=== PATIENT | female | born 1975 | race Caucasian/White ===

== ENCOUNTER 2017-04-01 17:57 | Emergency (ER) | payer SELFPAY ==
[~2017-04-01] VITALS: Ht 154.9 cm; Wt 69.0 kg
[~2017-04-01 17:57] MED LIST: LEXA20TA PO; MONT10TA2 PO; VENTAER INH
[2017-04-01 18:08] VITALS: BP 127/67; PULSE 82; RESP 16; TEMP 98.6; O2SAT 96
[2017-04-01] MEDS ORDERED: METF500T PO (18:23)
[2017-04-01 18:24] LABS: BLOOD, URINE TRACE (NEG); GLUCOSE,URINE 100 mg/dL (NEG); KETONE, URINE NEG (NEG); NITRITE,URINE POS (NEG); PH, URINE 5.5 (5.0-8.5)
[2017-04-01 18:59] LABS: URINE COLOR AMBER (YELLW/STRAW)
[2017-04-01 19:00] LABS: COMMENT (UR) CULT NOT INDICATED; CULTURE IF INDICATED CULT NOT INDICATED; RBC, URINE 0-3 /hpf (0-3); SQUAMOUS EPITHELIAL CELL URINE 0-5 /hpf (0-5); WBC, URINE 0-2 /hpf (0-5)
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
[2017-04-01] MEDS ORDERED: HYDROmorphone HCL PF 1 MG/ML VIAL IVP ONE (19:45)
[2017-04-01] MEDS ORDERED: SODIUM CHLOR 0.9% 1000 ML INJ 1,000 ML IV SCH (19:45)
[2017-04-01] MEDS ORDERED: ONDANSETRON HCL 4 MG/2 ML VIAL IV ONE (19:45)
--- NOTE | 2017-04-01 20:00 | RADRPT ---
EXAM DATE/TIME: 04/01/2017 19:23 [facility] COMPARISON: No previous studies available for comparison. INDICATIONS : Right flank pain. ORAL CONTRAST: No oral contrast ingested. RADIATION DOSE: 12.39 CTDIvol (mGy) MEDICAL HISTORY : Gastroesophageal reflux disease. Diabetes mellitus type 2. SURGICAL HISTORY : None. ENCOUNTER: Initial ACUITY: 1 day PAIN SCALE: 8/10 LOCATION: Right flank TECHNIQUE: Volumetric scanning of the abdomen and pelvis was performed. Using automated exposure control and ad justment of the mA and/or kV according to patient size, radiation dose was kept as low as reasonably achievable to obtain optimal diagnostic quality images. DICOM format image data is available electro nically for review and comparison. FINDINGS: LOWER LUNGS: The visualized lower lungs are clear. LIVER: Homogeneous density without lesion. There is no dilation of the biliary tree. No calcified gallston es. SPLEEN: Normal size without lesion. PANCREAS: Within normal limits. KIDNEYS: Normal in size and shape. There is no mass, stone, or hydronephrosis. ADRENAL GLANDS: Within normal limits. VASCULAR: There is no aortic aneurysm. BOWEL/MESENTERY: The stomach, small bowel, and colon demonstrate no acute abnormality. There is no free intraperitone al air or fluid. The appendix appears normal. ABDOMINAL WALL: Within normal limits. RETROPERITONEUM: There is no lymphadenopathy. BLADDER: No wall thickening or mass. REPRODUCTIVE: There is a 5.3 cm cystic mass in the right adnexa. INGUINAL: There is no lymphadenopathy or hernia. MUSCULOSKELETAL: Within normal limits for patient age. CONCLUSION: 5.3 cm cystic mass the right adnexa. This could be better characterized with a pelvic ultrasound exam ination. Alexandru Horton MD on April 01, 2017 at 19:54 Board Certified Radiologist. This report was verified electronically.
[2017-04-01 20:01] VITALS: BP 121/77; PULSE 71; RESP 18; O2SAT 97
[2017-04-01 21:35] VITALS: BP 124/71; PULSE 74; RESP 18; O2SAT 97
--- NOTE | 2017-04-01 21:51 | RADRPT ---
EXAM DATE/TIME: 04/01/2017 21:02 [facility] COMPARISON: No previous studies available for comparison. INDICATIONS : Pelvic pain. MEDICAL HISTORY : Gastroesophageal reflux disease. Glasses. Ovarian cysts. Diabetes. Anxiety. Bipolar disorder. SURGICAL HISTORY : None. ENCOUNTER: Initial ACUITY: 4-6 days PAIN SCORE: 8/10 LOCATION: Bilateral pelvis MEASUREMENTS: UTERUS: 8.9 x 5.7 x 4.6 cm ENDOMETRIAL STRIPE: 8 mm RIGHT OVARY: 6.0 x 4.3 x 4.3 cm LEFT OVARY: 2.7 x 2.3 x 2.3 cm FINDINGS: UTERUS: The myometrium has homogeneous echotexture without mass. Nabothian cysts are seen. RIGHT OVARY: There is a 5.1 x 4.6 x 4.0 cm complex cystic mass of the right adnexa thought to be related to a righ t ovarian complex cystic lesion. A separate right ovary is not seen. Arterial flow is seen. LEFT OVARY: Ovary contains no mass or significant cystic lesion. Arterial flow is seen. MISCELLANEOUS: No free fluid. CONCLUSION: 5.1 cm complex predominantly cystic mass of the right ovary. This could represent a hemorrhagic cyst versus other complex cystic lesions including the cystadenoma/cystadenocarcinoma. CREATIVE DIRECTOR followup is rec ommended. Alexandru Horton MD on April 01, 2017 at 21:47 Board Certified Radiologist. This report was verified electronically.
[2017-04-01] MEDS ORDERED: KETOROLAC TROMETHAMINE 60 MG/2 ML (IM) VIAL IVP ONE (22:00)
[2017-04-01] MEDS ORDERED: PROC10TA PO (22:19)
[2017-04-01] MEDS ORDERED: PERC5TAB12 PO (22:19)
[2017-04-01] MEDS ORDERED: IBUP-232 PO (22:19)
[2017-04-01 22:30] VITALS: BP 126/77; PULSE 77; RESP 18; O2SAT 97
== END 2017-04-01 22:34 | disposition home or self-care (01) ==
LOC: PHED 17:57
DX: N83.209 Unspecified ovarian cyst, unspecified side (principal); E11.9 Type 2 diabetes mellitus without complications; Z79.84 Long term (current) use of oral hypoglycemic drugs
CPT/HCPCS: 74176; 76830; 76856; 81001; 84703; 93975; 96361; 96374; 96375; 99285; J1170; J1885; J2405; J7030